=== PATIENT | male | born 1995 | race Caucasian/White ===

== ENCOUNTER 2017-11-08 08:55 | Emergency (ER) | payer OTHER | END 2017-11-08 09:40 | disposition home or self-care (01) | LOC: FTE 08:55 | DX: J02.9 Acute pharyngitis, unspecified (principal) | CPT/HCPCS: 99283; Z7502 ==

== ENCOUNTER 2018-10-15 22:55 | Emergency (ER) | payer OTHER ==
[2018-10-16] MEDS: HYDROCODONE/APAP (5/325) TAB PO (00:56)
== END 2018-10-16 02:24 | disposition home or self-care (01) ==
LOC: FTE 22:55
DX: M79.644 Pain in right finger(s) (principal)
CPT/HCPCS: 29130; 73140; 99283-25